=== PATIENT | male | born 1965 | race Caucasian/White ===

== ENCOUNTER 2018-09-25 14:05 | Emergency (ER) | payer OTHER ==
[2018-09-25] MEDS ORDERED: Sodium Chloride 0.9% 10 ML Syringe FLUSH PRN (14:54)
[2018-09-25] MEDS ORDERED: Sodium Chloride 0.9% 1,000 ML IV SCH (15:00)
[2018-09-25] MEDS ORDERED: Diltiazem 50 MG/10 ML SDV IVPUSH ONE (15:28)
[2018-09-25] MEDS ORDERED: Sodium Chloride 0.9% 1,000 ML IV ONE ×2 (15:28→18:14)
--- NOTE | 2018-09-25 15:57 | EDM.PDOC ---
ED HPI GENERAL MEDICAL PROBLEM - General Chief Complaint: Respiratory Problem Stated Complaint: SOB AND WEAK Time Seen by Provider: 09/25/18 14:45 Source of Information: Reports: Patient History Limitations: Reports: No Limitations - History of Present Illness INITIAL COMMENTS - FREE TEXT/NARRATIVE: The patient presents with a rash, sore throat, and rapid heart rate. This all started about 2 weeks ago. He developed the rash first and was seen at the clinic and was told it was a viral rash. About a week ago he developed a sore throat and was seen again and had a rapid strep that was negative. A few days ago he saw Moni Henry in our clinic and she did labs. His WBC was elevated and there were proteins in his blood affecting labs equipment. They sent of a sample to the pathologist for assessment. He had a normochromic normocytic anemia with rouleaux, leukocytosis with plasmacytoid lymphocytes and plasma cells, and mild thrombocytopenia. The most striking abnormality on the peripheral smear is a presence of increased numbers of plasmacytoid lymphocytes and plasma cells, associated with roleaux. While it is possible this represents a reaction to infection such as a viral infection, a lymphoproliferative or plasma cell proliferative disorder is also possible. Consider immunofixation electrophoresis and lymphocyte immunophenotyping by flow cytometry. He was put on amoxicillin after that visit. He presents today with tachycardia in the 140s and shortness of breath. He does have a slight cough and low grade fever. The rash is everywhere to include his head, arms, legs, and torso. He still has a slight sore throat. He has no chest pain. He says for the past couple of days he has been more short of breath mostly with exertion. He has no history of DVT or PE. He has no swelling or pain in his legs. The rash does not itch. He has no history of heart problems. Onset: Gradual Duration: Week(s): (2) Location: Reports: Generalized Severity: Moderate Improves with: Reports: None Worsens with: Reports: None Associated Symptoms: Reports: Cough, Fever/Chills. Denies: Chest Pain, Nausea/ Vomiting - Related Data Allergies Allergy/AdvReac Type Severity Reaction Status Date / Time No Known Allergies Allergy Verified 09/25/18 14:53 Home Meds: Home Meds Aspirin [Halfprin] 81 mg PO DAILY 09/25/18 [History] Lisinopril [Prinivil] 5 mg PO DAILY 09/25/18 [History] Simvastatin [Zocor] 40 mg PO DAILY 09/25/18 [History] metFORMIN [Glucophage] 2,000 mg PO BID 09/25/18 [History] Past Medical History Cardiovascular History: Reports: High Cholesterol, Hypertension Endocrine/Metabolic History: Reports: Diabetes, Type II Social & Family History - Tobacco Use Smoking Status *Q: Never Smoker - Caffeine Use Caffeine Use: Reports: Soda - Recreational Drug Use Recreational Drug Use: No ED ROS GENERAL - Review of Systems Review Of Systems: See Below Constitutional: Reports: Fever, Chills HEENT: Reports: Throat Pain Respiratory: Reports: Shortness of Breath, Cough Cardiovascular: Reports: No Symptoms Endocrine: Reports: No Symptoms GI/Abdominal: Reports: No Symptoms : Reports: No Symptoms Musculoskeletal: Reports: No Symptoms Skin: Reports: Rash ED EXAM, GENERAL - Physical Exam Exam: See Below Exam Limited By: No Limitations General Appearance: Alert, No Apparent Distress Ears: Normal External Exam Nose: Normal Inspection Throat/Mouth: Other (Mild pharyngeal erythema) Head: Atraumatic, Normocephalic Neck: Normal Inspection, Supple, Non-Tender Respiratory/Chest: No Respiratory Distress, Lungs Clear, Normal Breath Sounds Cardiovascular: Regular Rate, Rhythm, No Edema, No Murmur GI/Abdominal: Soft, Non-Tender, No Organomegaly, No Mass Back Exam: Normal Inspection Extremities: Normal Inspection Neurological: Alert, Oriented, No Motor/Sensory Deficits EKG INTERPRETATION EKG Date: 09/25/18 Time: 18:25 Rhythm: Other (Sinus tachycardia) Rate (Beats/Min): 141 [place]: LAD-Left [place] Deviation P-Wave: Present QRS: Normal ST-T: Normal QT: Normal EKG Interpretation Comments: Q waves in the inferior leads Course - Vital Signs Last Recorded V/S: Last Vital Signs Temp 99.3 F 09/25/18 14:45 Pulse 140 H 09/25/18 14:45 Resp 21 H 09/25/18 14:45 BP 106/72 09/25/18 14:45 Pulse Ox 97 09/25/18 14:45 - Orders/Labs/Meds Orders: Active Orders 24 hr Category Date Time Status Cardiac Monitoring [RC] . DIRECTED Care 09/25/18 14:55 Active EKG Documentation Completion [RC] STAT Care 09/25/18 14:55 Active Peripheral IV Care [RC] . DIRECTED Care 09/25/18 14:55 Active Chest 1V Frontal [CR] Stat Exams 09/25/18 14:55 Taken ASO TITER [REF] Stat Lab 09/25/18 15:30 Received CULTURE BLOOD [BC] Stat Lab 09/25/18 17:15 Received CULTURE BLOOD [BC] Stat Lab 09/25/18 17:25 Received UA W/MICROSCOPIC [URIN] Stat Lab 09/25/18 17:57 Ordered Sodium Chloride 0.9% [Normal Saline] 1,000 ml Med 09/25/18 15:00 Active IV ASDIRECTED Sodium Chloride 0.9% [Normal Saline] 1,000 ml Med 09/25/18 18:14 Active IV ONETIME Sodium Chloride 0.9% [Saline Flush] Med 09/25/18 14:54 Active 10 ml FLUSH ASDIRECTED PRN Vancomycin [Vancocin] 2 gm Med 09/25/18 17:55 Active Sodium Chloride 0.9% [Normal Saline] 250 ml IV ONETIME Blood Culture x2 Reflex Set [OM.PC] Stat Oth 09/25/18 16:40 Ordered Peripheral IV Insertion Adult [OM.PC] Stat Oth 09/25/18 14:54 Ordered Medication Orders Sodium Chloride (Normal Saline) 1,000 mls @ 125 mls/hr IV ASDIRECTED DANIELA Last Admin: 09/25/18 16:39 Dose: 125 mls/hr Vancomycin HCl 2 gm/ Sodium (Chloride) 250 mls @ 250 mls/hr IV ONETIME ONE Stop: 09/25/18 18:54 Sodium Chloride (Normal Saline) 1,000 mls @ 1,000 mls/hr IV ONETIME ONE Stop: 09/25/18 19:13 Sodium Chloride (Saline Flush) 10 ml FLUSH ASDIRECTED PRN PRN Reason: Keep Vein Open Last Admin: 09/25/18 15:37 Dose: 10 ml Labs: Laboratory Tests 09/25/18 09/25/18 09/25/18 Range/Units 14:50 14:50 14:50 WBC 28.78 H (4.23-9.07) K/mm3 RBC 3.56 L (4.63-6.08) M/mm3 Hgb 11.9 L (13.7-17.5) gm/L Hct 33.5 L (40.1-51.0) % MCV 94.1 H (79.0-92.2) fl MCH 33.4 H (25.7-32.2) pg MCHC 35.5 (32.2-35.5) g/dl RDW Std Deviation 47.4 H (35.1-43.9) fL Plt Count 102 L (163-337) K/mm3 MPV 12.0 (9.4-12.3) fl Neut % (Auto) Cancelled Lymph % (Auto) Cancelled Ross % (Auto) Cancelled Eos % (Auto) Cancelled Baso % (Auto) Cancelled Neut # (Auto) Cancelled Lymph # (Auto) Cancelled Ross # (Auto) Cancelled Eos # (Auto) Cancelled Baso # (Auto) Cancelled Neutrophils % (Manual) 49 (40-60) % Band Neutrophils % 0 (0-10) % Lymphocytes % (Manual) 34 (20-40) % Atypical Lymphs % 0 % Monocytes % (Manual) 7 (2-10) % Eosinophils % (Manual) 8 H (0.8-7.0) % Basophils % (Manual) 0 L (0.2-1.2) Metamyelocytes % 1 Blast Cells % 1 Absolute Plasma Cells 10.0 Manual Slide Review Cancelled Platelet Estimate Decreased Plt Morphology Comment See note Anisocytosis 1+ slight Macrocytosis 1+ slight Rouleaux 1+ slight RBC Morph Comment Not Reportable ESR 84 H (0-15) mm/hr Sodium 129 L (136-145) mEq/L Potassium 5.1 (3.5-5.1) mEq/L Chloride 98 (98-107) mEq/L Carbon Dioxide TNP Anion Gap TNP BUN TNP Creatinine 2.1 H (0.7-1.3) mg/dL Est Cr Clr Drug Dosing 44.65 mL/min Estimated GFR (MDRD) 33 (>60) mL/min BUN/Creatinine Ratio TNP Glucose TNP Lactic Acid (0.4-2.0) mmol/L Calcium TNP Total Bilirubin TNP AST TNP ALT TNP Alkaline Phosphatase 123 H (46-116) U/L Troponin I < 0.017 (0.00-0.056) ng/mL C-Reactive Protein TNP Total Protein TNP Albumin TNP Globulin TNP Albumin/Globulin Ratio TNP TSH 3rd Generation (0.358-3.74) uIU/mL Monoscreen (NEGATIVE) 09/25/18 09/25/18 09/25/18 Range/Units 14:50 15:20 17:15 WBC (4.23-9.07) K/mm3 RBC (4.63-6.08) M/mm3 Hgb (13.7-17.5) gm/L Hct (40.1-51.0) % MCV (79.0-92.2) fl MCH (25.7-32.2) pg MCHC (32.2-35.5) g/dl RDW Std Deviation (35.1-43.9) fL Plt Count (163-337) K/mm3 MPV (9.4-12.3) fl Neut % (Auto) Lymph % (Auto) Ross % (Auto) Eos % (Auto) Baso % (Auto) Neut # (Auto) Lymph # (Auto) Ross # (Auto) Eos # (Auto) Baso # (Auto) Neutrophils % (Manual) (40-60) % Band Neutrophils % (0-10) % Lymphocytes % (Manual) (20-40) % Atypical Lymphs % % Monocytes % (Manual) (2-10) % Eosinophils % (Manual) (0.8-7.0) % Basophils % (Manual) (0.2-1.2) Metamyelocytes % Blast Cells % Absolute Plasma Cells Manual Slide Review Platelet Estimate Plt Morphology Comment Anisocytosis Macrocytosis Rouleaux RBC Morph Comment ESR (0-15) mm/hr Sodium (136-145) mEq/L Potassium (3.5-5.1) mEq/L Chloride (98-107) mEq/L Carbon Dioxide Anion Gap BUN Creatinine (0.7-1.3) mg/dL Est Cr Clr Drug Dosing mL/min Estimated GFR (MDRD) (>60) mL/min BUN/Creatinine Ratio Glucose Lactic Acid 6.5 H (0.4-2.0) mmol/L Calcium Total Bilirubin AST ALT Alkaline Phosphatase (46-116) U/L Troponin I (0.00-0.056) ng/mL C-Reactive Protein Total Protein Albumin Globulin Albumin/Globulin Ratio TSH 3rd Generation 10.325 H (0.358-3.74) uIU/mL Monoscreen Negative (NEGATIVE) Meds: Medications Generic Name Dose Route Start Last Admin Trade Name Freq PRN Reason Stop Dose Admin Sodium Chloride 1,000 mls @ 125 mls/hr 09/25/18 15:00 09/25/18 16:39 Normal Saline IV 125 mls/hr ASDIRECTED DANIELA Administration Vancomycin HCl 2 gm/ Sodium 250 mls @ 250 mls/hr 09/25/18 17:55 Chloride IV 09/25/18 18:54 ONETIME ONE Sodium Chloride 1,000 mls @ 1,000 mls/hr 09/25/18 18:14 Normal Saline IV 09/25/18 19:13 ONETIME ONE Sodium Chloride 10 ml 09/25/18 14:54 09/25/18 15:37 Saline Flush FLUSH 10 ml ASDIRECTED PRN Administration Keep Vein Open Discontinued Medications Generic Name Dose Route Start Last Admin Trade Name Freq PRN Reason Stop Dose Admin Diltiazem HCl 10 mg 09/25/18 15:28 09/25/18 15:36 Cardizem IVPUSH 09/25/18 15:29 10 mg ONETIME ONE Administration Sodium Chloride 1,000 mls @ 1,000 mls/hr 09/25/18 15:28 09/25/18 15:31 Normal Saline IV 09/25/18 16:27 1,000 mls/hr ONETIME ONE Administration Ceftriaxone Sodium 2 gm/ 100 mls @ 200 mls/hr 09/25/18 17:09 09/25/18 17:25 Sodium Chloride IV 09/25/18 17:38 200 mls/hr ONETIME ONE Administration - Re-Assessments/Exams Free Text/Narrative Re-Assessment/Exam: 09/25/18 18:33 I ordered an IV NS 1L bolus, labs, CXR, and EKG. His EKG shows a sinus tachycardia with no acute changes. His CXR shows bilateral lower atalectasis. The lab called me and told me there is something in his blood like protein interfering with their analyzers. His WBC was 28.78. His HGb was low at 11.9. His platelets were low at 102. His ESR was elevated at 84. HIs Na was low at 129. His creatinine was elevated at 2.1. His GFR was low at 33. His alk phos was elevated at 123. His TSH was elevated at 10.325. His mono is negative. His lactic acid was elevated at 6.5. I have ordered more 2 more liters of fluid for a 30ml/kg bolus. I also ordered blood cultures and gave him rocephin 2 grams IV. I feel he needs to be admitted for sepsis, generalized rash, leukocytosis, anemia, thrombocytopenia and tachycardia. I called [facility] in [place] and talked to the ER physician and he said his hospitalist would not accept because they do not have dermatology to consult on the rash. They recommended I send him to the [facility] or to the [facility]. I do not feel he really needs dermatology at this point and [facility] is much closer and they have multispecialty card. I called there and talked with the hospitalist client professional, the production officer client professional, the infectious disease specialist client professional and the critical care doctor client professional Dr Mittal and he accepted the patient. He will be going by [facility]. They did recommended vancomycin and more fluids. I also have ordered a UA. Departure - Departure Time of Disposition: 18:45 Disposition: DC/Tfer to Acute Hospital 02 Condition: Serious Clinical Impression: Rash, Thrombocytopenia, Tachycardia Sepsis Qualifiers: Sepsis type: sepsis due to unspecified organism Qualified Code(s): A41.9 - Sepsis, unspecified organism Leukocytosis Qualifiers: Leukocytosis type: unspecified Qualified Code(s): D72.829 - Elevated white blood cell count, unspecified Anemia Qualifiers: Anemia type: other cause Other causes of anemia: other cause, not classified Qualified Code(s): D64.89 - Other specified anemias - Discharge Information Referrals: Moni Henry DENTAL PROSTHETIST [Primary Care Provider] - Forms: ED Department Discharge - My Orders Last 24 Hours: My Active Orders 09/25/18 14:54 Sodium Chloride 0.9% [Saline Flush] 10 ml FLUSH ASDIRECTED PRN Peripheral IV Insertion Adult [OM.PC] Stat 09/25/18 14:55 Cardiac Monitoring [RC] . DIRECTED EKG Documentation Completion [RC] STAT Peripheral IV Care [RC] . DIRECTED Chest 1V Frontal [CR] Stat 09/25/18 15:00 Sodium Chloride 0.9% [Normal Saline] 1,000 ml IV ASDIRECTED 09/25/18 15:30 ASO TITER [REF] Stat 09/25/18 16:40 Blood Culture x2 Reflex Set [OM.PC] Stat 09/25/18 17:15 CULTURE BLOOD [BC] Stat 09/25/18 17:25 CULTURE BLOOD [BC] Stat 09/25/18 17:55 Vancomycin [Vancocin] 2 gm Sodium Chloride 0.9% [Normal Saline] 250 ml IV ONETIME 09/25/18 17:57 UA W/MICROSCOPIC [URIN] Stat 09/25/18 18:14 Sodium Chloride 0.9% [Normal Saline] 1,000 ml IV ONETIME - Assessment/Plan Last 24 Hours: My Active Orders 09/25/18 14:54 Sodium Chloride 0.9% [Saline Flush] 10 ml FLUSH ASDIRECTED PRN Peripheral IV Insertion Adult [OM.PC] Stat 09/25/18 14:55 Cardiac Monitoring [RC] . DIRECTED EKG Documentation Completion [RC] STAT Peripheral IV Care [RC] . DIRECTED Chest 1V Frontal [CR] Stat 09/25/18 15:00 Sodium Chloride 0.9% [Normal Saline] 1,000 ml IV ASDIRECTED 09/25/18 15:30 ASO TITER [REF] Stat 09/25/18 16:40 Blood Culture x2 Reflex Set [OM.PC] Stat 09/25/18 17:15 CULTURE BLOOD [BC] Stat 09/25/18 17:25 CULTURE BLOOD [BC] Stat 09/25/18 17:55 Vancomycin [Vancocin] 2 gm Sodium Chloride 0.9% [Normal Saline] 250 ml IV ONETIME 09/25/18 17:57 UA W/MICROSCOPIC [URIN] Stat 09/25/18 18:14 Sodium Chloride 0.9% [Normal Saline] 1,000 ml IV ONETIME
[2018-09-25] MEDS ORDERED: cefTRIAXone 2 GM in Sodium Chloride 0.9% 100 ML IV ONE (17:09)
[2018-09-25] MEDS ORDERED: Acetaminophen 325 MG Tab PO ONE (18:25)
[2018-09-25] MEDS ORDERED: Vancomycin 2 GM in Sodium Chloride 0.9% 500 ML IV ONE (18:45)
--- NOTE | 2018-09-28 06:42 | CR ---
Chest: Portable view of the chest was obtained. Comparison: No prior chest x-ray. Mild increased density seen within both lung bases having the appearance of atelectasis. Lungs otherwise are clear. Heart size is normal. Tortuous thoracic aorta is seen. Bony structures are grossly intact. Impression: 1. Probable atelectasis within both lung bases. 2. Nothing acute is otherwise seen. Diagnostic code #2
== END 2018-09-25 20:40 ==
LOC: JD.ED 14:05
DX: A41.9 Sepsis, unspecified organism (principal); D72.829 Elevated white blood cell count, unspecified; D64.89 Other specified anemias; E11.9 Type 2 diabetes mellitus without complications; E78.00 Pure hypercholesterolemia, unspecified; I10 Essential (primary) hypertension; R21 Rash and other nonspecific skin eruption; D69.6 Thrombocytopenia, unspecified; R00.0 Tachycardia, unspecified; Z79.82 Long term (current) use of aspirin; Z79.899 Other long term (current) drug therapy; Z79.84 Long term (current) use of oral hypoglycemic drugs
CPT/HCPCS: 36415; 71045; 80053; 81001; 83605; 84443; 84484; 85007; 85027; 85045; 85652; 86060; 86308; 86703; 87040; 93005; 96361; 96365; 96367; 96375; 99285; A9270; G0433; J0696; J3370; J3490; J7030; J7040; 93010; 99284

== ENCOUNTER 2019-01-08 10:33 | Emergency (ER) | payer OTHER ==
--- NOTE | 2019-01-08 10:57 | EDM.PDOC ---
ED HPI GENERAL MEDICAL PROBLEM - General Chief Complaint: Head Injury Stated Complaint: LEFT EYE FACE LACERATION Time Seen by Provider: 01/08/19 10:57 Source of Information: Reports: Patient History Limitations: Reports: No Limitations - History of Present Illness INITIAL COMMENTS - FREE TEXT/NARRATIVE: 53-year-old male presents to the ED stating that he tripped up over a ledge on a cement patio when he fell face first into the concrete. His glasses were scraped up quite badly on the right side and dug into his inferior skin causing multiple lacerations and tears. He has suffered superficial abrasions to the right frontal cortex of his scalp. Of note the patient is bald. He denies loss of consciousness. Does have some mild cervical neck pain. Mild pain palmar aspect of his right hand but no other injuries identified. He fell just within the last hour prior to coming to the ED. Tetanus toxoid is felt to be up-to- date as he works for the fire department. Patient takes aspirin and is on Lovenox subcutaneous. Onset: Today Onset Date: 01/08/19 Onset Time: 10:05 Duration: Minutes: Location: Reports: Head, Face, Upper Extremity, Right (Palmar aspect right hand. ) Quality: Reports: Ache, Burning Severity: Moderate Improves with: Reports: None Worsens with: Reports: None Context: Reports: Trauma (Tripped and fell landing primarily face first on concrete surface. His glasses dug into the skin inferior to his right eye causing multiple lacerations to this area. Contusions abrasions to his right frontal cortex of scalp.). Denies: Activity, Exercise, Lifting, Sick Contact Associated Symptoms: Denies: Confusion, Chest Pain, Cough, cough w sputum, Diaphoresis, Fever/Chills, Headaches, Loss of Appetite, Malaise, Nausea/Vomiting , Rash, Seizure, Shortness of Breath, Syncope, Weakness Treatments GLORY HOLE TENDER: Reports: Other (see below) (None.) Left Cheek Pain Score (Numeric/FACES): 5 - Related Data Allergies Allergy/AdvReac Type Severity Reaction Status Date / Time fentanyl AdvReac Mild Arrhythmias Verified 01/08/19 10:42 Home Meds: Home Meds Aspirin [Halfprin] 81 mg PO DAILY 09/25/18 [History] Simvastatin [Zocor] 40 mg PO BEDTIME 09/25/18 [History] Acetaminophen [Tylenol] 650 mg PO Q4H PRN tablet 11/14/18 [Rx] Acyclovir 400 mg PO BID 11/14/18 [History] Allopurinol [Zyloprim] 300 mg PO DAILY 11/14/18 [History] Cefepime [Maxipime in D5W 2 GM/50 ML] 2 gm IV Q8H bag 11/14/18 [Rx] Dextrose 50% in Water [Dextrose 50%-Water] 50 ml IVPUSH ASDIRECTED PRN syringe 11/14/18 [Rx] Enoxaparin [Lovenox] 40 mg SUBCUT Q24H syringe 11/14/18 [Rx] Fluconazole [Diflucan] 200 mg PO DAILY 11/14/18 [History] Fluticasone Propionate [Flonase] 1 spray NASBOTH BID 11/14/18 [History] Hydrocortisone [Hydrocortisone 1% Crm] 1 applic TOP BID 11/14/18 [History] Ibuprofen [Motrin] 600 mg PO Q6H PRN tablet 11/14/18 [Rx] Insulin Lispro [HumaLOG] 0 unit SUBCUT QIDACANDBED vial 11/14/18 [Rx] Levofloxacin/Dextrose 5%-Water [Levaquin in D5W 750 MG/150 ML] 750 mg IV Q24H bag 11/14/18 [Rx] Loratadine 10 mg PO DAILY 11/14/18 [History] Metoprolol Succinate [Toprol XL] 50 mg PO DAILY tab.er 11/14/18 [Rx] Metoprolol Succinate [Toprol Xl] 50 mg PO DAILY 11/14/18 [History] Ondansetron [Zofran ODT] 4 mg PO TID PRN tab.dis 11/14/18 [Rx] Pantoprazole [ProTONIX] 40 mg PO BEDTIME tab.cr 11/14/18 [Rx] Pharmacy to Dose - Vancomycin 1 dose .XX ASDIRECTED each 11/14/18 [Rx] Sodium Chloride [Saline Nasal [place]] 2 spray NASBOTH Q2H PRN 11/14/18 [History] Vancomycin 1 gm IV Q12H sdv 11/14/18 [Rx] Vancomycin 500 mg IV Q12H sdv 11/14/18 [Rx] Past Medical History Cardiovascular History: Reports: High Cholesterol, Hypertension Musculoskeletal History: Reports: Other (See Below) Other Musculoskeletal History: bone biopsy Endocrine/Metabolic History: Reports: Diabetes, Type II Hematologic History: Reports: Anemia Immunologic History: Reports: Immunosuppression Oncologic (Cancer) History: Reports: Non-Hodgkin's Lymphoma Dermatologic History: Reports: Other (See Below) Other Dermatologic History: full body rash from chemo - Infectious Disease History Infectious Disease History: Reports: Chicken Pox, Mumps - Past Surgical History Oncologic Surgical History: Reports: Bone Marrow Aspiration Social & Family History - Family History Family Medical History: Noncontributory - Tobacco Use Smoking Status *Q: Never Smoker - Caffeine Use Caffeine Use: Reports: Soda - Recreational Drug Use Recreational Drug Use: No - Living Situation & Occupation Living situation: Reports: Single Occupation: Employed ED ROS GENERAL - Review of Systems Review Of Systems: See Below Constitutional: Denies: Fever, Chills, Malaise, Weakness HEENT: Reports: Glasses (Scraped up the lens of the left side of his glasses.) Respiratory: Reports: No Symptoms Cardiovascular: Reports: No Symptoms Endocrine: Reports: No Symptoms GI/Abdominal: Reports: No Symptoms : Reports: No Symptoms Musculoskeletal: Reports: Back Pain, Joint Pain Skin: Reports: Other (Hips and low back at times.) Neurological: Reports: No Symptoms ( Chronic folliculitis type rash both lower extremities.) Psychiatric: Reports: No Symptoms Hematologic/Lymphatic: Reports: No Symptoms Immunologic: Reports: No Symptoms ED EXAM, HEAD INJURY - Physical Exam Exam: See Below Exam Limited By: No Limitations General Appearance: Alert, WD/WN, Mild Distress Head: Scalp Abrasions (Muscle scalp abrasions left frontal cortex of the scalp. Of note he is bald.), Scalp Hematoma ( Mild scalp hematoma in this area as well. ), Scalp Tenderness, Facial Lacerations (Multiple facial lacerations inferior to his left eye that will require suture repair.) Nexus Criteria: No: Posterior, Midline Cervical Tenderness, Evidence of Intoxication, Altered Level of Consciousness, Focal Neurological Deficit, Painful Distraction Injuries Eyes: Bilateral Eye: Normal Inspection (No injuries to the left eye her cornea appreciated.), PERRL Nose: Normal Inspection, Normal Mucousa, No Blood, Other (No injuries to ) Throat/Mouth: Normal Inspection, Normal Lips, Normal Teeth, Normal Oropharynx ( his nose.), Other (Normal temporomandibular joint function and no sign of fracture mandible.) Neck: Paraspinous Muscle Tender (Tender both sides of his lateral spine with full range of motion however.) Respiratory: No Respiratory Distress, Lungs Clear, Normal Breath Sounds, No Accessory Muscle Use, Chest Non-Tender Cardiovascular: Normal Peripheral Pulses, Regular Rate, Rhythm, No Edema, No Gallop, No Murmur, No Rub GI/Abdominal Exam: Normal Bowel Sounds, Soft, Non-Tender, No Organomegaly, No Abnormal Bruit, No Mass, Pelvis Stable, Other (Mildly obese) Back Exam: Normal Inspection, Decreased Range of Motion, Paraspinal Tenderness. No: CVA Tenderness (L) Extremities: Other (He has some swelling over the thenar and hyperthenar eminences of his right hand but no evidence of a fracture in the carpal bones. Knees appear to have escaped injury. Left hand is normal) Neurologic: real estate management specialist II-XII nml As Tested, No Motor/Sensory Deficits, Alert, Normal Mood/Affect, Oriented x 3 Skin: Other - Shayan Coma Score Best Eye Response (Shayan): (4) Open Spontaneously (Has a chronic follicular- like rash or picking on both lower extremities.) Best Verbal Response ([place]): (5) Oriented Best Motor Response (Shayan): (6) Obeys Commands [place] Total: 15 ED LACERATION/WOUND & CARLEE PROC - Laceration/Wound Repair Left Middle Face Lac/wound length in cm: 5.0 (Multiple lacerations to the left face inferior to the eye. Complex laceration repair) Appearance: Subcutaneous, Irregular, Clean Distal NVT: Neuro & Vascular Intact Anesthetic Type: Local Local Anesthesia - Lidocaine (Xylocaine): 1% Plain Local Anesthetic Volume: Other (15 mL) Skin Prep: Saline Exploration/Debridement/Repair: Wound Explored Closed with: Sutures Suture Size: Other (There is both fall and 5-0 Ethilon sutures.) # of Sutures: 25 Suture Type: Nylon, Interrupted, Simple Course - Vital Signs Last Recorded V/S: Last Vital Signs Temp 37.0 C 01/08/19 10:39 Pulse 110 H 01/08/19 10:39 Resp 16 01/08/19 10:39 BP 120/69 01/08/19 10:39 Pulse Ox 97 01/08/19 10:39 - Orders/Labs/Meds Meds: Medications Discontinued Medications Generic Name Dose Route Start Last Admin Trade Name Jack PRN Reason Stop Dose Admin Lidocaine HCl 20 ml 01/08/19 11:14 01/08/19 11:19 Xylocaine 1% INJECT 01/08/19 11:15 20 ml ONETIME ONE Administration - Radiology Interpretation Free Text/Narrative:: 53-year-old male presents to the ED after tripping and falling at home over a concrete ledge. He fell face first into a concrete patio deck. His glasses were scraped up quite badly on the right lens and they dug into his face causing multiple lacerations inferior to his left eye. No injury to the eye itself. Suffered multiple superficial abrasions to the right frontal cortex of his scalp. Plan CT maxillofacial bones and head to be done. Lacerations will require surgical repair. - Re-Assessments/Exams Free Text/Narrative Re-Assessment/Exam: 01/08/19 11:50 CT of the head reveals a large left frontal scalp hematoma. No fractures are identified in the skull and no intracranial bleeding is identified. There is extensive sinus disease with air-fluid levels throughout all of the frontal sinuses. He has diffuse ethmoid and sphenoid sinusitis and trace of sinusitis with mucosal thickening in both left and right maxillary sinuses. No fracture of the periorbital bones appreciated on the left side at the site of his injury. No other fractures are identified on maxillofacial CT either. Lacerations will be repaired at this time. 01/08/19 12:52 lacerations inferior to the left eye were sutured for a total of 25 sutures. The length of laceration is 5 cm. Sutures are to remain in place for 10 days. Daily cleanse wound with soap and water. Then apply bacitracin ointment to all abrasions and laceration repair sites twice daily to prevent secondary infection. Departure - Departure Time of Disposition: 12:53 Disposition: Home, Self-Care 01 Condition: Fair Clinical Impression: Chronic pansinusitis, Abrasion of scalp, initial encounter Fall as cause of accidental injury at home as place of occurrence Qualifiers: Encounter type: initial encounter Qualified Code(s): W19.XXXA - Unspecified fall, initial encounter Complex laceration of face Qualifiers: Encounter type: initial encounter Qualified Code(s): S01.91XA - Laceration without foreign body of unspecified part of head, initial encounter - Discharge Information *PRESCRIPTION DRUG MONITORING PROGRAM REVIEWED*: Not Applicable *COPY OF PRESCRIPTION DRUG MONITORING REPORT IN PATIENT AKASH: Not Applicable Instructions: Sutured Wound Care, Abrasion, [id number] Referrals: Moni Henry DIGITAL PROJECT COORDINATOR [Primary Care Provider] - Forms: ED Department Discharge Additional Instructions: Evaluation the emergency room today in regards to injuries sustained from a fall at home this morning when he tripped over a concrete ledge landing face first on the concrete. This resulted in a "minor closed head injury with no sign of intracranial bleeding or skull fracture on CT. Abrasions to the left forehead and a scalp hematoma. You have suffered blunt trauma with 5 cm lacerations in a very complex pattern inferior to the left eye that required wound closure [address] of the facial bones does not reveal any broken bones but does reveal pansinusitis particularly with air-fluid levels in the frontal sinuses but also involvement of the ethmoid sphenoids and maxillary sinuses on CT exam. No fractures to the nose occurred. Treatment is to daily cleanse the wounds was soap and water. Showering is okay. Then apply topical antibiotic such as bacitracin to all abrasions and sutured wounds twice daily to prevent wound infection. Sutures are going to need to be removed in 10 days' time. Please make an appointment with your physician to have them removed. Return to medical care if any signs of infection occur such as redness, swelling , increased pain or obvious pus. Expect swelling underneath the left eye to get a little worse over the next 24 hours and then take 24 hours to subside. Closer eye on the left side.
--- NOTE | 2019-01-08 11:00 | EDM.PDOC ---
ED HPI GENERAL MEDICAL PROBLEM - General Chief Complaint: Head Injury Stated Complaint: LEFT EYE FACE LACERATION Time Seen by Provider: 01/08/19 10:57 Source of Information: Reports: Patient History Limitations: Reports: No Limitations - History of Present Illness INITIAL COMMENTS - FREE TEXT/NARRATIVE: 53-year-old male presents to the ED I believe with his daughter. He states he was out in the yard and tripped over the concrete lip on his patio falling face first into the patio. He smashed his glasses into his face and suffered multiple deep complicated lacerations on the inferior aspect of his left eye and facial cheek. Effort abrasions to his left forehead with underlying hematoma. He was not knocked out. His glasses are severely scrape on the lens component of the left side but did not break the frames. He has some contusions to the palmar aspect of his right hand over the thenar and hyperthenar and hypo thenar- eminences. No significant injuries to his knees hips or elsewhere. Slight tenderness the left side of his neck but he had full range of motion. Patient is currently undergoing treatment for a type the lymphoma. He is receiving chemotherapy on a daily basis. Onset: Today, Sudden Onset Date: 01/08/19 Onset Time: 10:00 Duration: Minutes: Location: Reports: Head, Face, Upper Extremity, Right (Right palmar aspect of hand.) Quality: Reports: Ache Severity: Moderate Improves with: Reports: None Worsens with: Reports: None Context: Reports: Trauma (Tripped and fell face first onto a concrete surface. Suffered blunt trauma to his head and left face). Denies: Activity, Exercise, Lifting, Sick Contact Associated Symptoms: Reports: Shortness of Breath, Weakness. Denies: Confusion , Chest Pain, Cough, cough w sputum, Diaphoresis, Fever/Chills, Headaches, Loss of Appetite, Malaise, Nausea/Vomiting, Rash, Seizure, Syncope Treatments ROVING WEIGHT GAUGER: Reports: Other (see below) (None.) Left Cheek Pain Score (Numeric/FACES): 5 - Related Data Allergies Allergy/AdvReac Type Severity Reaction Status Date / Time fentanyl AdvReac Mild Arrhythmias Verified 01/08/19 10:42 Home Meds: Home Meds Aspirin [Halfprin] 81 mg PO DAILY 09/25/18 [History] Simvastatin [Zocor] 40 mg PO BEDTIME 09/25/18 [History] Acetaminophen [Tylenol] 650 mg PO Q4H PRN tablet 11/14/18 [Rx] Acyclovir 400 mg PO BID 11/14/18 [History] Allopurinol [Zyloprim] 300 mg PO DAILY 11/14/18 [History] Cefepime [Maxipime in D5W 2 GM/50 ML] 2 gm IV Q8H bag 11/14/18 [Rx] Dextrose 50% in Water [Dextrose 50%-Water] 50 ml IVPUSH ASDIRECTED PRN syringe 11/14/18 [Rx] Enoxaparin [Lovenox] 40 mg SUBCUT Q24H syringe 11/14/18 [Rx] Fluconazole [Diflucan] 200 mg PO DAILY 11/14/18 [History] Fluticasone Propionate [Flonase] 1 spray NASBOTH BID 11/14/18 [History] Hydrocortisone [Hydrocortisone 1% Crm] 1 applic TOP BID 11/14/18 [History] Ibuprofen [Motrin] 600 mg PO Q6H PRN tablet 11/14/18 [Rx] Insulin Lispro [HumaLOG] 0 unit SUBCUT QIDACANDBED vial 11/14/18 [Rx] Levofloxacin/Dextrose 5%-Water [Levaquin in D5W 750 MG/150 ML] 750 mg IV Q24H bag 11/14/18 [Rx] Loratadine 10 mg PO DAILY 11/14/18 [History] Metoprolol Succinate [Toprol XL] 50 mg PO DAILY tab.er 11/14/18 [Rx] Metoprolol Succinate [Toprol Xl] 50 mg PO DAILY 11/14/18 [History] Ondansetron [Zofran ODT] 4 mg PO TID PRN tab.dis 11/14/18 [Rx] Pantoprazole [ProTONIX] 40 mg PO BEDTIME tab.cr 11/14/18 [Rx] Pharmacy to Dose - Vancomycin 1 dose .XX ASDIRECTED each 11/14/18 [Rx] Sodium Chloride [Saline Nasal [place]] 2 spray NASBOTH Q2H PRN 11/14/18 [History] Vancomycin 1 gm IV Q12H sdv 11/14/18 [Rx] Vancomycin 500 mg IV Q12H sdv 11/14/18 [Rx] Past Medical History Cardiovascular History: Reports: High Cholesterol, Hypertension Musculoskeletal History: Reports: Other (See Below) Other Musculoskeletal History: bone biopsy Endocrine/Metabolic History: Reports: Diabetes, Type II Hematologic History: Reports: Anemia Immunologic History: Reports: Immunosuppression Oncologic (Cancer) History: Reports: Non-Hodgkin's Lymphoma Dermatologic History: Reports: Other (See Below) Other Dermatologic History: full body rash from chemo - Infectious Disease History Infectious Disease History: Reports: Chicken Pox, Mumps - Past Surgical History Oncologic Surgical History: Reports: Bone Marrow Aspiration Social & Family History - Family History Family Medical History: Noncontributory - Tobacco Use Smoking Status *Q: Never Smoker - Caffeine Use Caffeine Use: Reports: Soda - Recreational Drug Use Recreational Drug Use: No - Living Situation & Occupation Living situation: Reports: Single Occupation: Employed ED ROS GENERAL - Review of Systems Review Of Systems: See Below Constitutional: Reports: No Symptoms HEENT: Reports: Glasses, Other Respiratory: Reports: Shortness of Breath Cardiovascular: Reports: No Symptoms, Dyspnea on Exertion, Lightheadedness. Denies: Chest Pain, Claudication, Orthopnea Endocrine: Reports: Fatigue (On chemotherapy daily.) GI/Abdominal: Reports: Decreased Appetite, Nausea (Weight loss occasional nausea ), Other : Reports: Frequency Musculoskeletal: Reports: Joint Pain (Knees hips lower back and neck at times) Skin: Reports: Bruising Neurological: Reports: Dizziness (This is a little more easier than normal.), Difficulty Walking, Weakness Psychiatric: Reports: No Symptoms Hematologic/Lymphatic: Reports: No Symptoms Immunologic: Reports: No Symptoms ED EXAM, HEAD INJURY - Physical Exam Exam: See Below Exam Limited By: No Limitations General Appearance: Alert, Mild Distress, Other (Obviously injured with multiple lacerations to his left face inferior to his left eye. Abrasions to the left forehead and frontal scalp with scalp hematoma.) Head: Scalp Swelling, Scalp Abrasions (Scalp hematoma left frontal scalp. Multiple abrasions left frontal scalp.), Scalp Hematoma, Facial Abrasions (Left eyebrow), Other. No: Active Bleeding (Hematoma left frontal scalp.), Jones's Sign, Flap Nexus Criteria: No: Posterior, Midline Cervical Tenderness (Multiple lacerations left face inferior to his left eye.), Evidence of Intoxication, Altered Level of Consciousness, Focal Neurological Deficit, Painful Distraction Injuries Eyes: Bilateral Eye: Normal Inspection, PERRL (No apparent injury to the left eye.) Ears: Normal External Exam, Normal TMs Nose: Normal Inspection, Normal Mucousa, No Blood, Other (No signs of trauma to his nose.) Throat/Mouth: Normal Inspection, Normal Lips, Normal Teeth, Normal Oropharynx, Other (No dental injury or injury to his tongue.) Neck: Non-Tender, Full Range of Motion, Normal Alignment, Paraspinous Muscle Tender (Mild paraspinal tenderness left), Tender Lateral (Left lateral neck tenderness.) Respiratory: No Respiratory Distress, Lungs Clear, Normal Breath Sounds, No Accessory Muscle Use, Decreased Breath Sounds Cardiovascular: Normal Peripheral Pulses, Regular Rate, Rhythm, No Gallop, No Murmur (Mildly decreased air entry to both lower lung gale.), No Rub GI/Abdominal Exam: Normal Bowel Sounds, Soft, Non-Tender, No Organomegaly, No Abnormal Bruit, No Mass, Pelvis Stable Extremities: Pedal Edema Neurologic: No Motor/Sensory Deficits, Alert, Normal Mood/Affect, Oriented x 3 ED LACERATION/WOUND & CARLEE PROC - Laceration/Wound Repair Left Middle Face Lac/wound length in cm: 5.0 (Complicated laceration repair inferior to the left eye facial cheek) Appearance: Subcutaneous, Stellate, Irregular, Clean Distal NVT: Neuro & Vascular Intact Anesthetic Type: Local Local Anesthesia - Lidocaine (Xylocaine): 1% Plain Local Anesthetic Volume: Other Skin Prep: Saline Exploration/Debridement/Repair: Wound Explored, Wound Margins Revised Suture [place]: [place] [id number]) # of Sutures: 25 Suture Type: Nylon, Interrupted (Use a combination of 401 5-0 Ethilon sutures to provide wound closure. ), Simple Course - Vital Signs Last Recorded V/S: Last Vital Signs Temp 37.0 C 01/08/19 10:39 Pulse 110 H 01/08/19 10:39 Resp 16 01/08/19 10:39 BP 120/69 01/08/19 10:39 Pulse Ox 97 01/08/19 10:39 - Orders/Labs/Meds Meds: Medications Discontinued Medications Generic Name Dose Route Start Last Admin Trade Name Freq PRN Reason Stop Dose Admin Lidocaine HCl 20 ml 01/08/19 11:14 01/08/19 11:19 Xylocaine 1% INJECT 01/08/19 11:15 20 ml ONETIME ONE Administration - Radiology Interpretation Free Text/Narrative:: 53-year-old male presents the ED after tripping over a concrete lip on his patio deck. This caused him to false face first into the concrete deck weak in his lower extremities because of chemotherapy daily and some swelling of his lower extremities. He is fighting off a type B lymphoma. His eyeglasses were in place and he scratched up the lens is quite badly on the left side. However they 've dog deeply into the tissue inferior to the right eye causing extensive lacerations and a stellate irregular pattern. He has suffered abrasions to his left frontal forehead and frontal scalp with a hematoma. He denies losing consciousness. He does have a headache. He has a lot of swelling over the inferior left eye tissue. Tetanus toxoid is up-to-date. Plan CT maxillofacial bones and had to be done. He will require laceration repair left face - Re-Assessments/Exams Free Text/Narrative Re-Assessment/Exam: 01/08/19 12:00 CT head reveals no intracranial bleeding or skull fracture. CT maxillofacial bones reveals pansinusitis with air-fluid levels in the frontals .Marked ethmoid and sphenoid sinusitis. There is also sinusitis in both maxillary sinuses. There are no fractures around the left periorbital area or the nasal bones. Will therefore proceed with llaceration repair under local anesthetic Free Text/Narrative Re-Assessment/Exam: 01/08/19 12:42 multiple difficult lacerations were high complexity were required to close multiple facial wounds inferior to the left eye. 25 sutures were utilized at all using a combination of 40 and 5-0 Ethilon sutures. Sutures are going to need to be removed in 10 days' time. Topical antibiotic such as bacitracin or Polysporin to be applied to the wounds daily as well as to his facial and scalp abrasions. Departure - Departure Time of Disposition: 13:00 Disposition: Home, Self-Care 01 Clinical Impression: Chronic pansinusitis, Abrasion of scalp, initial encounter Fall as cause of accidental injury at home as place of occurrence Qualifiers: Encounter type: initial encounter Qualified Code(s): W19.XXXA - Unspecified fall, initial encounter Complex laceration of face Qualifiers: Encounter type: initial encounter Qualified Code(s): S01.91XA - Laceration without foreign body of unspecified part of head, initial encounter - Discharge Information *PRESCRIPTION DRUG MONITORING PROGRAM REVIEWED*: Not Applicable *COPY OF PRESCRIPTION DRUG MONITORING REPORT IN PATIENT AKASH: Not Applicable Instructions: Sutured Wound Care, Abrasion, [id number] Referrals: Moni Henry NP [Primary Care Provider] - Forms: ED Department Discharge Additional Instructions: Evaluation the emergency room today in regards to injuries sustained from a fall at home this morning when he tripped over a concrete ledge landing face first on the concrete. This resulted in a "minor closed head injury with no sign of intracranial bleeding or skull fracture on CT. Abrasions to the left forehead and a scalp hematoma. You have suffered blunt trauma with 5 cm lacerations in a very complex pattern inferior to the left eye that required wound closure [address] of the facial bones does not reveal any broken bones but does reveal pansinusitis particularly with air-fluid levels in the frontal sinuses but also involvement of the ethmoid sphenoids and maxillary sinuses on CT exam. No fractures to the nose occurred. Treatment is to daily cleanse the wounds was soap and water. Showering is okay. Then apply topical antibiotic such as bacitracin to all abrasions and sutured wounds twice daily to prevent wound infection. Sutures are going to need to be removed in 10 days' time. Please make an appointment with your physician to have them removed. Return to medical care if any signs of infection occur such as redness, swelling , increased pain or obvious pus. Expect swelling underneath the left eye to get a little worse over the next 24 hours and then take 24 hours to subside. Closer eye on the left side.
[2019-01-08] MEDS ORDERED: Lidocaine 1% 10 ML MDV INJECT ONE (11:14)
--- NOTE | 2019-01-08 11:54 | CT ---
CT facial bones Technique: Multiple axial sections through the facial bones were obtained. Reconstructed coronal and sagittal images were obtained. Comparison: No previous facial bone study. Findings: Soft tissue swelling is noted within the left frontal scalp. Soft tissue swelling also noted within the left cheek and left periorbital region. Severe mucosal thickening is seen within the frontal and ethmoid sinuses. Mild mucosal thickening is seen within the sphenoid sinus as well as mild to moderate mucosal thickening within both maxillary sinuses. No air-fluid levels are seen. Right and left globes are symmetric in size. No retrobulbar abnormality is seen. No facial bone fracture is identified. Mild scattered degenerative change is partially visualized within the cervical spine. Impression: 1. Fairly severe sinus disease which appears to be chronic. 2. Soft tissue swelling within the left frontal scalp, left periorbital region and left cheek. 3. No facial bone fracture is identified. Diagnostic code #3
--- NOTE | 2019-01-08 11:54 | CT ---
Head CT Technique: Multiple axial sections through the brain were obtained. Intravenous contrast was not utilized. Comparison: No prior intracranial imaging. Findings: Soft tissue swelling is noted within the left periorbital region and left frontal scalp. Ventricles along with basal cisterns and sulci over the convexities are mildly prominent. No abnormal parenchymal densities are seen. No evidence of intracranial hemorrhage. No midline shift or mass effect is seen. Bone window settings show no acute calvarial abnormality. Sinus findings are again seen as described on facial bone exam. Impression: 1. Generalized atrophy. 2. Soft tissue swelling as described on facial CT. 3. No acute intracranial abnormality is identified. Diagnostic code #2
== END 2019-01-08 13:11 | disposition home or self-care (01) ==
LOC: JD.ED 10:33
DX: S01.81XA Laceration without foreign body of other part of head, initial encounter (principal); S00.01XA Abrasion of scalp, initial encounter; J32.4 Chronic pansinusitis; E11.9 Type 2 diabetes mellitus without complications; E78.00 Pure hypercholesterolemia, unspecified; I10 Essential (primary) hypertension; Z88.8 Allergy status to other drugs, medicaments and biological substances; Z79.82 Long term (current) use of aspirin; Z79.4 Long term (current) use of insulin; W01.0XXA Fall on same level from slipping, tripping and stumbling without subsequent striking against object, initial encounter
CPT/HCPCS: 12013; 13132; 70450; 70486; 99283; J2001; 12052; 99282

== ENCOUNTER 2019-05-25 11:23 | Emergency (ER) | payer OTHER ==
[2019-05-25] MEDS ORDERED: Sodium Chloride 0.9% 10 ML Syringe FLUSH PRN (12:06)
[2019-05-25] MEDS ORDERED: Sodium Chloride 0.9% 1,000 ML IV SCH (12:15)
--- NOTE | 2019-05-25 12:15 | EDM.PDOC ---
ED HPI GENERAL MEDICAL PROBLEM - General Chief Complaint: Head Injury Stated Complaint: FELL LAST NIGHT HIT HEAD Time Seen by Provider: 05/25/19 11:43 Source of Information: Reports: Patient, Old Records, Provider, RN Notes Reviewed - History of Present Illness INITIAL COMMENTS - FREE TEXT/NARRATIVE: 53 year old male has been brought in by a sister, coworkers for severe generalized weakness. He fell about 7 hours ago early this am, called his sister for help and she and her helped him back into bed. When she rechecked on him a short time ago he was very pale, lethargic, unable to sit or stand on his own, much more droopy than he has been. They were able to bring him here private vehicle but it was with 4 or 5 adults helping him. Unable to stand or walk on his own. He does answer questions at time of my exam, denies chest or abd pain. Denies Ar[place]uin, neck or back pain. He has hx of T cell Lymphoma. Is reported to have been in the hospital much of April. Was admitted to [facility] a week ago with "high calcium, protein, weakness, anemia. He was transfused a couple of times, hypercalcemia and hyperproteinemia treated with IV fluids and given a new type of chemo last 5 days ago, released from hospital Friday 4 days ago. He did have a CVA a month ago also has hx of thrombocytopenia. - Related Data Allergies Allergy/AdvReac Type Severity Reaction Status Date / Time fentanyl AdvReac Mild Respiratory Verified 05/25/19 11:40 Distress Home Meds: Home Meds Fluticasone Propionate [Flonase] 1 spray NASBOTH BID 11/14/18 [History] Ondansetron [Zofran ODT] 4 mg PO TID PRN tab.dis 11/14/18 [Rx] allopurinoL [Zyloprim] 300 mg PO DAILY 11/14/18 [History] Acetaminophen [Tylenol] 650 mg PO Q6HR PRN 05/25/19 [History] Azithromycin 500 mg PO DAILY 05/25/19 [History] Citalopram Hydrobromide [Celexa] 40 mg PO DAILY 05/25/19 [History] Cyanocobalamin (Vitamin B-12) [B-12 Dots] 500 mcg PO DAILY 05/25/19 [History] Dronabinol 2.5 mg PO BID 05/25/19 [History] Levothyroxine 75 mcg PO ACBREAKFAST 05/25/19 [History] Metoprolol Succinate [Toprol XL] 75 mg PO BID 05/25/19 [History] Micafungin Sodium [Mycamine] 100 mg IV DAILY 05/25/19 [History] Promethazine [Phenergan] 1.2 ml TOP ASDIRECTED PRN 05/25/19 [History] Sodium Chloride [Saline Nasal [place]] 1 spray NS Q2HR PRN 05/25/19 [History] diphenhydrAMINE/Zinc Acetate [Banophen Anti-Itch 2%] 1 applic TOP QID PRN [History] guaiFENesin [Mucinex] 600 mg PO BID 05/25/19 [History] predniSONE [Prednisone] 20 mg PO DAILY 05/25/19 [History] Past Medical History Cardiovascular History: Reports: High Cholesterol, Hypertension, Pacemaker Respiratory History: Reports: Other (See Below) Other Respiratory History: fungal infection in lungs Genitourinary History: Reports: Other (See Below) Other Genitourinary History: [place] Musculoskeletal History: Reports: Other (See Below) Other Musculoskeletal History: bone biopsy Neurological History: Reports: CVA Endocrine/Metabolic History: Reports: Diabetes, Type II Hematologic History: Reports: Anemia, Blood Transfusion(s) Immunologic History: Reports: Immunosuppression Oncologic (Cancer) History: Reports: Other (See Below) Other Oncologic History: Tcell peripherial lymphoma Dermatologic History: Reports: Other (See Below) Other Dermatologic History: full body rash from chemo - Infectious Disease History Infectious Disease History: Reports: Chicken Pox, Mumps - Past Surgical History Cardiovascular Surgical History: Reports: Pacer Oncologic Surgical History: Reports: Bone Marrow Aspiration Social & Family History - Family History Family Medical History: Noncontributory - Tobacco Use Smoking Status *Q: Never Smoker - Caffeine Use Caffeine Use: Reports: Soda - Recreational Drug Use Recreational Drug Use: No - Living Situation & Occupation Living situation: Reports: Single Occupation: Employed ED ROS GENERAL - Review of Systems Review Of Systems: See Below Constitutional: Denies: Fever, Chills, Diaphoresis HEENT: Denies: Throat Pain Respiratory: Denies: Shortness of Breath Cardiovascular: Denies: Chest Pain GI/Abdominal: Denies: Abdominal Pain, Nausea, Vomiting Musculoskeletal: Denies: Neck Pain, Back Pain Skin: Reports: Other (abrasion post scalp) Neurological: Reports: Dizziness, Headache (mild), Difficulty Walking, Weakness (generalized). Denies: Trouble Speaking ED EXAM, HEAD INJURY - Physical Exam Exam: See Below Exam Limited By: Altered Mental Status (more lethargic, less alert than usual) Head: Other (there is an abrasion post scalp, no swelling or deep lac visible). No: Scalp Lacerations, Scalp Swelling, Active Bleeding, Jones's Sign, Facial Abrasions, Facial Swelling, Raccoon Eyes Eyes: Bilateral Eye: PERRL Ears: Normal External Exam Nose: Normal Inspection Throat/Mouth: Other (oral mucosa moderately dry) Neck: Non-Tender Respiratory: No Respiratory Distress, Lungs Clear, Normal Breath Sounds Cardiovascular: Regular Rate, Rhythm GI/Abdominal Exam: Soft, Non-Tender. No: Guarding Back Exam: No: CVA Tenderness (L), CVA Tenderness (R) Extremities: Normal Inspection, Non-Tender, No Pedal Edema. No: Leg Pain Neurologic: Other (very drowsy, does answer simple questions, obeys simple commands, very mild weakness L hand and arm compared to the right, can lift both legs up off of the cot) Skin: Pallor Course - Vital Signs Last Recorded V/S: Last Vital Signs Temp 98.1 F 05/25/19 11:33 Pulse 85 05/25/19 11:33 Resp 19 05/25/19 11:33 BP 104/77 05/25/19 11:33 Pulse Ox 100 05/25/19 11:33 - Orders/Labs/Meds Orders: Active Orders 24 hr Category Date Time Status Peripheral IV Care [RC] . DIRECTED Care 05/25/19 12:07 Active Sodium Chloride 0.9% [Normal Saline] 1,000 ml Med 05/25/19 12:15 Active IV ONETIME Sodium Chloride 0.9% [Saline Flush] Med 05/25/19 12:06 Active 10 ml FLUSH ASDIRECTED PRN Peripheral IV Insertion Adult [OM.PC] Stat Oth 05/25/19 12:06 Ordered Medication Orders Sodium Chloride (Normal Saline) 1,000 mls @ 999 mls/hr IV ONETIME DANIELA Last Admin: 05/25/19 12:41 Dose: 999 mls/hr Sodium Chloride (Saline Flush) 10 ml FLUSH ASDIRECTED PRN PRN Reason: Keep Vein Open Last Admin: 05/25/19 12:41 Dose: 10 ml Labs: Laboratory Tests 05/25/19 05/25/19 05/25/19 Range/Units 12:48 12:48 12:48 WBC 4.46 (4.23-9.07) K/mm3 RBC 2.69 L (4.63-6.08) M/mm3 Hgb 8.1 L (13.7-17.5) gm/dl Hct 23.8 L (40.1-51.0) % MCV 88.5 D (79.0-92.2) fl MCH 30.1 (25.7-32.2) pg MCHC 34.0 (32.2-35.5) g/dl RDW Std Deviation 51.2 H (35.1-43.9) fL Plt Count 33 L D (163-337) K/mm3 MPV 10.1 (9.4-12.3) fl Neutrophils % (Manual) 55 (40-60) % Band Neutrophils % 1 (0-10) % Lymphocytes % (Manual) 23 (20-40) % Atypical Lymphs % 10 % Monocytes % (Manual) 10 (2-10) % Eosinophils % (Manual) 0 L (0.8-7.0) % Basophils % (Manual) 1 (0.2-1.2) Toxic Granulation 1+ slight Dohle Bodies 1+ slight Platelet Estimate Decreased Polychromasia 1+ slight Basophilic Stippling 1+ slight Anisocytosis 2+ moderate Rouleaux 1+ slight RBC Morph Comment Not Reportable PT (9.7-12.0) SECONDS INR Sodium 136 (136-145) mEq/L Potassium 3.5 (3.5-5.1) mEq/L Chloride 102 (98-107) mEq/L Carbon Dioxide 25 (21-32) mEq/L Anion Gap 12.5 (5-15) BUN 49 H D (7-18) mg/dL Creatinine 1.4 H (0.7-1.3) mg/dL Est Cr Clr Drug Dosing 61.92 mL/min Estimated GFR (MDRD) 53 (>60) mL/min BUN/Creatinine Ratio 35.0 H (14-18) Glucose 144 H (74-106) mg/dL Lactic Acid 1.7 (0.4-2.0) mmol/L Calcium 9.4 D (8.5-10.1) mg/dL Total Bilirubin 0.6 (0.2-1.0) mg/dL AST 13 L (15-37) U/L ALT 11 L (16-63) U/L Alkaline Phosphatase 59 (46-116) U/L Total Protein 7.9 (6.4-8.2) g/dl Albumin 2.0 L (3.4-5.0) g/dl Globulin 5.9 gm/dL Albumin/Globulin Ratio 0.3 L (1-2) 05/25/19 Range/Units 12:48 WBC (4.23-9.07) K/mm3 RBC (4.63-6.08) M/mm3 Hgb (13.7-17.5) gm/dl Hct (40.1-51.0) % MCV (79.0-92.2) fl MCH (25.7-32.2) pg MCHC (32.2-35.5) g/dl RDW Std Deviation (35.1-43.9) fL Plt Count (163-337) K/mm3 MPV (9.4-12.3) fl Neutrophils % (Manual) (40-60) % Band Neutrophils % (0-10) % Lymphocytes % (Manual) (20-40) % Atypical Lymphs % % Monocytes % (Manual) (2-10) % Eosinophils % (Manual) (0.8-7.0) % Basophils % (Manual) (0.2-1.2) Toxic Granulation Dohle Bodies Platelet Estimate Polychromasia Basophilic Stippling Anisocytosis Rouleaux RBC Morph Comment PT 12.3 H (9.7-12.0) SECONDS INR 1.14 Sodium (136-145) mEq/L Potassium (3.5-5.1) mEq/L Chloride (98-107) mEq/L Carbon Dioxide (21-32) mEq/L Anion Gap (5-15) BUN (7-18) mg/dL Creatinine (0.7-1.3) mg/dL Est Cr Clr Drug Dosing mL/min Estimated GFR (MDRD) (>60) mL/min BUN/Creatinine Ratio (14-18) Glucose (74-106) mg/dL Lactic Acid (0.4-2.0) mmol/L Calcium (8.5-10.1) mg/dL Total Bilirubin (0.2-1.0) mg/dL AST (15-37) U/L ALT (16-63) U/L Alkaline Phosphatase (46-116) U/L Total Protein (6.4-8.2) g/dl Albumin (3.4-5.0) g/dl Globulin gm/dL Albumin/Globulin Ratio (1-2) Meds: Medications Generic Name Dose Route Start Last Admin Trade Name Freq PRN Reason Stop Dose Admin Sodium Chloride 1,000 mls @ 999 mls/hr 05/25/19 12:15 05/25/19 12:41 Normal Saline IV 999 mls/hr ONETIME DANIELA Administration Sodium Chloride 10 ml 05/25/19 12:06 05/25/19 12:41 Saline Flush FLUSH 10 ml ASDIRECTED PRN Administration Keep Vein Open - Re-Assessments/Exams Free Text/Narrative Re-Assessment/Exam: 05/25/19 13:11. Head CT shows R intracerebral hemorhage, moderately large, no midline shift. lab just called, platelets are low at 33,000. As noted he does have hx of T cell lymphoma, admitted to [facility] just last week for anemia, weakness, metabolic problems, last chemo was last just 5 days ago. He is full code at this time. He and sister would like for him to go to [facility]. I did call Dr Romeo, his Oncologist who probably knows his over health status best and he also does recomend transfer to [facility] for further eval, treatment. I have discussed this with Dr Franco. Hospitalist who does accept patient in transfer. He will be transferred by ground ambulance. Departure - Departure Time of Disposition: 13:30 Disposition: DC/Tfer to Acute Hospital 02 Condition: Serious Clinical Impression: Thrombocytopenia Intracerebral hemorrhage Qualifiers: Intracerebral hemorrhage etiology: nontraumatic Cerebral hemorrhage location: cerebral hemisphere, cortical portion Anemia Qualifiers: Anemia type: other cause Other causes of anemia: other cause, not classified Qualified Code(s): D64.89 - Other specified anemias - Discharge Information Referrals: Moni Henry ASSISTANT DRAFTER [Primary Care Provider] - Forms: ED Department Discharge Sepsis Event Note - Evaluation Sepsis Screening Result: No Definite Risk - Focused Exam Vital Signs: Vital Signs Temp Pulse Resp BP Pulse Ox 05/25/19 11:33 98.1 F 85 19 104/77 100 Date Exam was Performed: 05/25/19 Time Exam was Performed: 15:11 - My Orders Last 24 Hours: My Active Orders 05/25/19 12:06 Sodium Chloride 0.9% [Saline Flush] 10 ml FLUSH ASDIRECTED PRN Peripheral IV Insertion Adult [OM.PC] Stat 05/25/19 12:07 Peripheral IV Care [RC] . DIRECTED 05/25/19 12:15 Sodium Chloride 0.9% [Normal Saline] 1,000 ml IV ONETIME - Assessment/Plan Last 24 Hours: My Active Orders 05/25/19 12:06 Sodium Chloride 0.9% [Saline Flush] 10 ml FLUSH ASDIRECTED PRN Peripheral IV Insertion Adult [OM.PC] Stat 05/25/19 12:07 Peripheral IV Care [RC] . DIRECTED 05/25/19 12:15 Sodium Chloride 0.9% [Normal Saline] 1,000 ml IV ONETIME
--- NOTE | 2019-05-25 13:21 | CT ---
Head CT Technique: Multiple axial sections through the brain were obtained. Intravenous contrast was not utilized. Findings: Parenchymal hemorrhage identified at the junction of the right temporal, frontal and parietal regions. This parenchymal hemorrhage measures about 5.3 cm. There is surrounding edema being seen. Mild amount of subcutaneous arachnoid blood is also seen within the posterior right frontal and temporal regions. Mild mass effect is seen with effacement of the lateral right ventricle. No midline shift is seen at this time. No other intracranial hemorrhage is seen. Ventricles along with basal cisterns and sulci over the convexities are mildly prominent. Slight atherosclerotic calcification is noted within the vertebral vessels and carotid siphon. Bone window settings were reviewed. No acute calvarial abnormality is appreciated. Mastoid sinuses are clear. Mild mucosal thickening is seen within the maxillary sinuses. Moderate mucosal thickening is seen within the frontal and ethmoid sinuses. Small fluid level is seen within the sphenoid sinus. Impression: 1. Sinus disease as noted above. 2. Intraparenchymal hemorrhage with mild surrounding edema. Subarachnoid hemorrhage also noted. These findings are noted on the right side. Findings cause mass effect with effacement the lateral right ventricle. 3. No skull fracture is appreciated. Diagnostic code #5 This report was dictated in [place] Standard Time
== END 2019-05-25 13:45 ==
LOC: JD.ED 11:23
DX: S06.2X0A Diffuse traumatic brain injury without loss of consciousness, initial encounter (principal); D69.6 Thrombocytopenia, unspecified; D64.89 Other specified anemias; I10 Essential (primary) hypertension; E11.9 Type 2 diabetes mellitus without complications; Z88.8 Allergy status to other drugs, medicaments and biological substances; Z79.899 Other long term (current) drug therapy; W19.XXXA Unspecified fall, initial encounter
CPT/HCPCS: 36415; 70450; 80053; 83605; 85007; 85027; 85610; 96360; 99285; J7030; 99284